=== PATIENT | female | born 1980 | race African-American/Black ===

== ENCOUNTER 2016-12-07 07:25 | Emergency (ER) | payer BC, OTHER ==
[2016-12-07] MEDS ORDERED: IBUPROFEN 600 MG TABLET PO ONE (08:19)
[2016-12-07] MEDS ORDERED: PREDNISONE 20 MG TABLET PO ONE (08:19)
--- NOTE | 2016-12-07 08:25 | ER Document Report ---
ED Extremity Problem, Lower - General Chief Complaint: Leg Pain Stated Complaint: LEGS/FEET PAIN Time seen by provider: 08:20 Mode of Arrival: Ambulatory Information source: Patient Notes: 36-year-old female presents to ED for pain to both legs. She states they have a bad ache to him from top of her legs to her feet. She was told by her radio electrician that she probably has lupus. She has not followed up to get the testing. She states today she is just aching very bad. Discussed the fact that she needs to go to a distribution technician with her and get the testing to find out what is actually going on. TRAVEL OUTSIDE OF THE [place] IN LAST 30 DAYS: No - HPI Patient complains to provider of: Pain. No: Injury, Swelling Location: Foot, Knee, Leg, Thigh Occurred: Other - Few months Onset/Duration: Intermittent Quality of pain: Achy, Burning Severity: Moderate Pain Level: 4 Recent injury: No Associated symptoms: Painful ambulation Exacerbated by: Movement, Walking Relieved by: Nothing - Related Data Allergies/Adverse Reactions: No Known Allergies Allergy (Verified 12/07/16 07:29) Past Medical History - General Information source: Patient - Social History Smoking Status: Current Every Day Smoker Cigarette use (# per day): Yes - 2 to 3 black and milds Chew tobacco use (# tins/day): No Smoking Education Provided: Yes - less than 2 minutes Frequency of alcohol use: Social Drug Abuse: None Lives with: Family - She lives with her children Family History: Hypertension, Malignancy Patient has suicidal ideation: No Patient has homicidal ideation: No - Past Medical History Cardiac Medical History: Reports: Hx Hypertension Pulmonary Medical History: Reports: Hx Bronchitis EENT Medical History: Reports: None Neurological Medical History: Reports: None Endocrine Medical History: Reports: None Renal/ Medical History: Reports: None Malignancy Medical History: Reports: None GI Medical History: Reports: None Musculoskeltal Medical History: Reports Hx Arthritis, Reports Hx Musculoskeletal Deformity Skin Medical History: Reports Hx Eczema Traumatic Medical History: Reports: None Infectious Medical History: Reports: None Past Surgical History: Reports: Hx Oral Surgery - Multiple dental surgeries - Immunizations Immunizations up to date: Yes Hx Diphtheria, Pertussis, Tetanus Vaccination: Yes Review of Systems - Review of Systems Constitutional: No symptoms reported EENT: No symptoms reported Cardiovascular: No symptoms reported Respiratory: No symptoms reported Gastrointestinal: No symptoms reported Genitourinary: No symptoms reported Female Genitourinary: No symptoms reported Musculoskeletal: Other - Burning and aching in both legs no injuries no bruises Skin: No symptoms reported Hematologic/Lymphatic: No symptoms reported Neurological/Psychological: No symptoms reported Physical Exam - Vital signs Vitals: Temp Pulse Resp BP Pulse Ox 98.4 F 88 16 147/89 H 100 12/07/16 07:29 12/07/16 07:29 12/07/16 07:29 12/07/16 07:29 12/07/16 07:29 Interpretation: Normal - General General appearance: Appears well, Alert - HEENT Head: Normocephalic, Atraumatic Eyes: Normal Pupils: PERRL - Respiratory Respiratory status: No respiratory distress Chest status: Nontender Breath sounds: Normal Chest palpation: Normal - Cardiovascular Rhythm: Regular Heart sounds: Normal auscultation Murmur: No - Abdominal Inspection: Normal Distension: No distension Bowel sounds: Normal Tenderness: Nontender Organomegaly: No organomegaly - Back Back: Normal, Nontender - Extremities General upper extremity: Normal inspection, Nontender, Normal color, Normal ROM , Normal temperature General lower extremity: Normal inspection, Normal color, Normal ROM, Normal temperature, Normal weight bearing. No: Nontender - Both legs tender to touch no bruises no injuries no change in color patient able to walk just pain and tenderness to both legs, Bee's sign - Neurological Neuro grossly intact: Yes Cognition: Normal Orientation: AAOx4 [place] Coma Scale Eye Opening: Spontaneous Zach Coma Scale Verbal: Oriented Zach Coma Scale Motor: Obeys Commands Zach Coma Scale Total: 15 Speech: Normal Motor strength normal: LUE, RUE, LLE, RLE Sensory: Normal - Psychological Associated symptoms: Normal affect, Normal mood - Skin Skin Temperature: Warm Skin Moisture: Dry Skin Color: Normal Course - Re-evaluation Re-evalutation: 12/07/16 08:53 We'll treat patient with prednisone and ibuprofen and discharged home patient instructed to follow-up with distribution technician or primary doctor to get tested for lupus assessment and she is concerned she has. - Vital Signs Vital signs: Temp Pulse Resp BP Pulse Ox 98.1 F 80 16 147/96 H 100 12/07/16 09:01 12/07/16 09:01 12/07/16 09:01 12/07/16 09:01 12/07/16 09:01 Discharge - Discharge Clinical Impression: Leg pain, bilateral Condition: Stable Disposition: HOME, SELF-CARE Instructions: Family Physicians / Practices Additional Instructions: Leg Pain, Nonspecific We did not find an obvious cause for your leg pain. There's no sign of blood clot, infection, or other serious disease. Possible causes of vague leg pain include muscle or joint inflammation, disc disease in the lower back, pressure on the nerves in the back, or reduced blood flow through the arteries of the leg. Rest the leg. Pain can be eased with an antiinflammatory pain medicine such as ibuprofen. If the pain involves a small area, a heating pad might help. Call the doctor or return if the leg becomes swollen, weak, discolored, or increasingly painful, or if you develop any other significant change in your health. Ibuprofen Ibuprofen is an excellent, safe drug for pain control. In addition, it has potent antiinflammatory effects which are beneficial, especially in the treatment of injuries, arthritis, or tendonitis. It's best to take ibuprofen with food. Persons with ulcer disease or allergy to aspirin should notify their physician of this before taking ibuprofen. Take the medication exactly as prescribed. Don't take additional doses unless instructed to do so by your doctor. If you develop wheezing, shortness of breath, hives, faintness, stomach pain, vomiting, or dark black stools, return for re-evaluation at once. STEROID MEDICATION: You have been given a medicine of the cortisone/steroid class. This medication is used to control inflammation or allergy. It is usually only given for a short period of time, until the acute process subsides. There are usually no side effects from short-term use of cortisone-like medications. Some persons feel an increased sense of well-being and are not sleepy at bedtime. Long-term use of cortisone medications is best avoided, unless required for a severe condition. If your condition does not remit, or relapses after the course of corticosteroid medication, you should consult your physician. FOLLOW-UP CARE: If you have been referred to a physician for follow-up care, call the physician s office for an appointment as you were instructed or within the next two days. If you experience worsening or a significant change in your symptoms, notify the physician immediately or return to the Emergency Department at any time for re-evaluation. Prescriptions: Prednisone [Sterapred Ds] 1 pkg PO ASDIR PRN 12 Days PRN Reason: Forms: Elevated Blood Pressure, Smoking Cessation Education, Return to Work
[2016-12-07 09:03] VITALS: BP 147/96
== END 2016-12-07 09:04 | disposition home or self-care (01) ==
LOC: ER 07:25
DX: M79.605 Pain in left leg (principal); M79.604 Pain in right leg; F17.210 Nicotine dependence, cigarettes, uncomplicated; I10 Essential (primary) hypertension
CPT/HCPCS: 99283; J7512

== ENCOUNTER 2017-06-26 09:49 | Emergency (ER) | payer BC ==
[2017-06-26] MEDS ORDERED: IBUPROFEN 600 MG TABLET PO ONE (10:09)
[2017-06-26 10:24] LABS: APPEARANCE,URINE SLIGHTLY-CLOUDY; BILIRUBIN,URINE NEGATIVE (NEGATIVE); GLUCOSE, URINE NEGATIVE (NEGATIVE); KETONES,URINE NEGATIVE (NEGATIVE); LEUKOCYTE ESTERASE,URINE NEGATIVE (NEGATIVE); NITRITE,URINE NEGATIVE (NEGATIVE); PROTEIN,URINE NEGATIVE (NEGATIVE); URINE SPECIFIC GRAVITY 1.013
--- NOTE | 2017-06-26 10:34 | ER Document Report ---
ED Fall - General Mode of Arrival: Ambulatory Information source: Patient TRAVEL OUTSIDE OF THE [place] IN LAST 30 DAYS: No - HPI Patient complains to provider of: back and chest pain Occurred: Yesterday Where: Outdoors Context: Tripped - fell down 4-5 steps Location of injury/pain: Back, Chest - General Chief Complaint: Back Pain Stated Complaint: FALL/BACK PAIN Time Seen by Provider: 06/26/17 10:04 Notes: Patient is a 36 year old female presenting to the emergency department complaining of back and chest pain beginning this morning after a fall. Patient states that she was taking the trash out when she fell down 4-5 steps and landed her on chest. Patient states that the right side of her back and right side of her chest is where the pain is located. Patient is currently taking amlodipine for hypertension. Patients PCP is Dr. Franklin. (LILY RICHARD) - Related data Allergies/Adverse Reactions: No Known Allergies Allergy (Verified 06/26/17 09:51) Past Medical History - General Information source: Patient, [facility] Records - Social History Smoking Status: Current Every Day Smoker Cigarette use (# per day): Yes - 2-3 black and milds daily Chew tobacco use (# tins/day): No Smoking Education Provided: No Frequency of alcohol use: Occasional Drug Abuse: Marijuana Occupation: [employer] Family History: Hypertension, Malignancy Patient has suicidal ideation: No Patient has homicidal ideation: No - Past Medical History Cardiac Medical History: Reports: Hx Hypertension Pulmonary Medical History: Reports: Hx Bronchitis Musculoskeltal Medical History: Reports Hx Arthritis, Reports Hx Musculoskeletal Deformity Skin Medical History: Reports Hx Eczema Past Surgical History: Reports: Hx Oral Surgery - Multiple dental surgeries - Immunizations Immunizations up to date: Yes Hx Diphtheria, Pertussis, Tetanus Vaccination: Yes Review of Systems - Review of Systems Constitutional: No symptoms reported EENT: No symptoms reported Cardiovascular: See HPI, Chest pain - chest wall Respiratory: No symptoms reported Gastrointestinal: No symptoms reported Genitourinary: No symptoms reported Female Genitourinary: No symptoms reported Musculoskeletal: See HPI, Back pain Skin: No symptoms reported Hematologic/Lymphatic: No symptoms reported Neurological/Psychological: No symptoms reported -: Yes All other systems reviewed and negative Physical Exam - Vital signs Interpretation: Normal - General General appearance: Appears well, Alert In distress: None - HEENT Head: Normocephalic, Atraumatic Eyes: Normal Pupils: PERRL Mucous membranes: Moist - Respiratory Respiratory status: No respiratory distress Chest status: Tender - parasternal tenderness with palpation Breath sounds: Normal Chest palpation: Normal - Cardiovascular Rhythm: Regular Heart sounds: Normal auscultation Murmur: No - Abdominal Inspection: Normal Distension: No distension Bowel sounds: Normal Tenderness: Nontender Organomegaly: No organomegaly - Back Back: Tender - right lateral scapular musculature tenderness with palpation - Extremities General upper extremity: Normal inspection, Normal ROM, Normal strength General lower extremity: Normal inspection, Normal ROM, Normal strength Shoulder: Tender - Neurological Neuro grossly intact: Yes Cognition: Normal Orientation: AAOx4 [place] Coma Scale Eye Opening: Spontaneous Zach Coma Scale Verbal: Oriented Zach Coma Scale Motor: Obeys Commands Zach Coma Scale Total: 15 Speech: Normal - Psychological Associated symptoms: Normal affect, Normal mood - Skin Skin Temperature: Warm Skin Moisture: Dry Skin Color: Normal - Vital signs Vitals: Temp Pulse Resp BP Pulse Ox 97.9 F 83 16 157/102 H 100 06/26/17 09:51 06/26/17 09:51 06/26/17 09:51 06/26/17 09:51 06/26/17 09:51 - Vital Signs Vital signs: Temp Pulse Resp BP Pulse Ox 98.7 F 73 18 175/95 H 100 06/26/17 10:54 06/26/17 10:54 06/26/17 10:54 06/26/17 10:54 06/26/17 10:54 - Laboratory Laboratory results interpreted by me: 06/26/17 10:05 Urine Urobilinogen 2.0 H Discharge - Discharge Clinical Impression: Fall Qualifiers: Encounter type: initial encounter Qualified Code(s): W19.XXXA - Unspecified fall, initial encounter Chest wall contusion Qualifiers: Encounter type: initial encounter Laterality: right Qualified Code(s): S20.211A - Contusion of right front wall of thorax, initial encounter Muscle strain of right scapular region Qualifiers: Encounter type: initial encounter Qualified Code(s): S46.911A - Strain of unspecified muscle, fascia and tendon at shoulder and upper arm level, right arm , initial encounter Condition: Stable Disposition: HOME, SELF-CARE Additional Instructions: Muscle Strain You have strained a muscle -- torn the fibers within the muscle. This often occurs with strenuous exertion, or during an injury that suddenly stretches the muscle. The seriousness of a strain varies. Some strains heal within days, others cause problems for months. X-rays cannot show a muscle strain. X-rays are taken only if symptoms suggest that a fracture could be present. The usual treatment of a muscle strain is rest and ice packs. Sometimes, a sling, splint, or crutches may be necessary to rest the muscle. The muscle can be used again once pain subsides. Severe strains require a special exercise and stretching program to prevent permanent stiffness and disability. Your doctor will advise you if this will be necessary. Call the doctor immediately if pain or swelling becomes severe, or if numbness or discoloration develop. TAKE THE PAIN MEDICATION IF NEEDED. REST THE NEXT 1-2 DAYS. FOLLOW UP WITH YOUR DOCTOR IF NOT IMPROVING. Prescriptions: Hydrocodone/Acetaminophen [[place] 5-325 mg Tablet] 1 tab PO Q4 PRN #15 tablet PRN Reason: Forms: Return to Work Referrals: RYAN FRANKLIN MD [Primary Care Provider] - Follow up as needed Scribe Attestation: 06/26/17 10:37 I personally performed the services described in the documentation, reviewed and edited the documentation which was dictated to the scribe in my presence, and it accurately records my words and actions. (ABDIRASHID LOREDO) Scribe Documentation - Scribe Written by Danial:: Danial Ortega, 06/26/2017 1327 acting as scribe for :: Hoa
--- NOTE | 2017-06-26 10:49 | RADIOLOGY REPORT (SQ) ---
EXAM DESCRIPTION: CHEST PA/LAT COMPLETED DATE/TIME: 06/26/2017 10:27 am REASON FOR STUDY: chest pain COMPARISON: 05/07/2015 EXAM PARAMETERS: NUMBER OF VIEWS: two views TECHNIQUE: Digital Frontal and Lateral radiographic views of the chest acquired. RADIATION DOSE: NA LIMITATIONS: none FINDINGS: LUNGS AND PLEURA: No opacities, masses or pneumothorax. No pleural effusion. MEDIASTINUM AND HILAR STRUCTURES: No masses or contour abnormalities. HEART AND VASCULAR STRUCTURES: Heart normal size. No evidence for failure. BONES: No acute findings. HARDWARE: None in the chest. OTHER: No other significant finding. IMPRESSION: NO SIGNIFICANT RADIOGRAPHIC FINDING IN THE CHEST. TECHNICAL DOCUMENTATION: JOB ID: [id number] [employer]- All Rights Reserved
[2017-06-26 11:02] VITALS: BP 175/95
== END 2017-06-26 10:59 | disposition home or self-care (01) ==
LOC: ER 09:49
DX: S20.211A Contusion of right front wall of thorax, initial encounter (principal); S46.911A Strain of unspecified muscle, fascia and tendon at shoulder and upper arm level, right arm, initial encounter; M54.9 Dorsalgia, unspecified; W10.9XXA Fall (on) (from) unspecified stairs and steps, initial encounter; Y92.008 Other place in unspecified non-institutional (private) residence as the place of occurrence of the external cause; F17.290 Nicotine dependence, other tobacco product, uncomplicated; I10 Essential (primary) hypertension
CPT/HCPCS: 71020; 81001; 81025; 99284

== ENCOUNTER 2017-07-30 04:47 | Emergency (ER) | payer BC ==
[2017-07-30] MEDS ORDERED: METOCLOPRAMIDE HCL INJ/PF 10 MG/2 ML SDV IV ONE (05:23)
[2017-07-30] MEDS ORDERED: DIPHENHYDRAMINE HCL 50 MG/ML VIAL IV ONE (05:24)
[2017-07-30] MEDS ORDERED: NORMAL SALINE 1000 ML 1,000 ML IV ONE (05:24)
--- NOTE | 2017-07-30 05:26 | ER Document Report ---
ED Headache - General Chief Complaint: Headache Stated Complaint: HEAD ACHE Time Seen by Provider: 07/30/17 05:16 Notes: Patient is a 36-year-old female that comes emergency department for chief complaint of headache. She states headache is right-sided, sharp, making her nauseated and light sensitive. She denies vomiting, visual changes, focal numbness or weakness. She denies neck pain, fever, head injury. She denies history of the same. She states she started getting headaches on Monday, worsened tonight. She states she is nervous because she is a family history of a relative having a brain hemorrhage spontaneously and she wants to be checked for this. She states that she is doing medicated with amlodipine 5 mg daily but her urgent care told her now she needs to go to internal medicine to have ongoing treatment for this. She has not managed to get this point yet. She denies any other medical history. TRAVEL OUTSIDE OF THE [place] IN LAST 30 DAYS: No - Related Data Allergies/Adverse Reactions: No Known Allergies Allergy (Verified 07/30/17 04:49) Past Medical History - General Information source: Patient - Social History Smoking Status: Never Smoker Frequency of alcohol use: None Drug Abuse: None Lives with: Family Family History: Hypertension, Malignancy Patient has suicidal ideation: No Patient has homicidal ideation: No - Past Medical History Cardiac Medical History: Reports: Hx Hypertension Pulmonary Medical History: Reports: Hx Bronchitis Renal/ Medical History: Denies: Hx Peritoneal Dialysis Musculoskeltal Medical History: Reports Hx Arthritis, Reports Hx Musculoskeletal Deformity Skin Medical History: Reports Hx Eczema Past Surgical History: Reports: Hx Oral Surgery - Multiple dental surgeries - Immunizations Immunizations up to date: Yes Hx Diphtheria, Pertussis, Tetanus Vaccination: Yes Review of Systems - Review of Systems Constitutional: No symptoms reported EENT: No symptoms reported Cardiovascular: No symptoms reported Respiratory: No symptoms reported Gastrointestinal: No symptoms reported Genitourinary: No symptoms reported Female Genitourinary: No symptoms reported Musculoskeletal: No symptoms reported Skin: No symptoms reported Hematologic/Lymphatic: No symptoms reported Neurological/Psychological: See HPI Physical Exam - Vital signs Vitals: Temp Pulse Resp BP Pulse Ox 98.4 F 81 16 149/100 H 99 07/30/17 04:56 07/30/17 04:56 07/30/17 04:56 07/30/17 04:56 07/30/17 04:56 Interpretation: Normal - General General appearance: Appears well, Alert In distress: None - Patient appears minimally uncomfortable, squinting her eyes , does not appear to be in distress - HEENT Head: Normocephalic, Atraumatic Eyes: Normal Extraocular movements intact: Yes Eyelashes: Normal Pupils: PERRL - Mild photophobia Nasal: Normal Mouth/Lips: Normal Mucous membranes: Normal Pharynx: Normal Neck: Normal - Respiratory Respiratory status: No respiratory distress Chest status: Nontender Breath sounds: Normal. No: Decreased air movement Chest palpation: Normal - Cardiovascular Rhythm: Regular. No: Tachycardia Heart sounds: Normal auscultation, S1 appreciated, S2 appreciated Murmur: No - Abdominal Inspection: Normal Distension: No distension Bowel sounds: Normal Tenderness: Nontender. No: Tender, Guarding Organomegaly: No organomegaly - Back Back: Normal, Nontender. No: Tender - Extremities General upper extremity: Normal inspection, Nontender, Normal strength, Normal temperature General lower extremity: Normal inspection, Nontender, Normal strength, Normal temperature - Neurological Neuro grossly intact: Yes Cognition: Normal Orientation: AAOx4 [place] Coma Scale Eye Opening: Spontaneous [place] Coma Scale Verbal: Oriented Zach Coma Scale Motor: Obeys Commands [place] Coma Scale Total: 15 Speech: Normal Motor strength normal: LUE, RUE, LLE, RLE Sensory: Normal - Psychological Associated symptoms: Normal affect, Normal mood - Skin Skin Temperature: Warm Skin Moisture: Dry Skin Color: Normal Course - Re-evaluation Re-evalutation: Patient is persistently worried about her headache and her family history, eventually agreed to perform CT of the head, although headache is 3 days old and not severe, no injury, blood pressure not significantly elevated. However she has not had headaches like this before. CT is normal. After medications patient reexamined, headache is completely resolved. Very low suspicion of intracranial hemorrhage, subarachnoid hemorrhage, meningitis. Consistent with migraine. Discussed results, recommendations with patient in detail, patient will be referred to primary care, restarted on her amlodipine, and I discussed return precautions in detail with patient. Patient states satisfaction and agreement. - Vital Signs Vital signs: Temp Pulse Resp BP Pulse Ox 98.3 F 72 18 157/82 H 99 07/30/17 07:32 07/30/17 07:32 07/30/17 07:32 07/30/17 07:32 07/30/17 07:32 Discharge - Discharge Clinical Impression: Headache Qualifiers: Headache type: unspecified Headache chronicity pattern: acute headache Intractability: not intractable Qualified Code(s): R51 - Headache Hypertension Qualifiers: Hypertension type: unspecified Qualified Code(s): I10 - Essential (primary) hypertension Disposition: HOME, SELF-CARE Additional Instructions: Your symptoms and response to treatment are consistent with a migraine. Your CAT scan of the head is normal. Your neurological exam is normal. Resume your normal blood pressure medication as prescribed. Follow-up with primary care for additional management of both blood pressure and migraine headaches. Return to the emergency department for any concerning or worsening symptoms including return or severe headache, vomiting, or any other concerning symptoms. Prescriptions: Amlodipine Besylate 5 mg PO DAILY #30 tab Forms: Return to Work Referrals: TRISTON GARCES MD [ACTIVE STAFF] - Follow up as needed ALIREZA MCMANUS MD [ACTIVE STAFF] - Follow up as needed
--- NOTE | 2017-07-30 06:31 | RADIOLOGY REPORT (SQ) ---
EXAM DESCRIPTION: CT HEAD WITHOUT COMPLETED DATE/TIME: 07/30/2017 6:23 am REASON FOR STUDY: sharp right sided headache, nausea, no hx of H/As COMPARISON: None. TECHNIQUE: Axial images acquired through the brain without intravenous contrast. Images reviewed wi th bone, brain and subdural windows. Images stored on PACS. All CT scanners at this facility use dose modulation, iterative reconstruction, and/or weight based d osing when appropriate to reduce radiation dose to as low as reasonably achievable (ALARA). [facility]: Dose Right [facility]: CareDose [facility]: Dose Right [facility]: Teradose 4D [facility]: [employer] Media RADIATION DOSE: mGy. LIMITATIONS: None. FINDINGS: VENTRICLES: Normal size and contour. CEREBRUM: No masses. No hemorrhage. No midline shift. No evidence for acute infarction. Normal gra y/white matter differentiation. No areas of low density in the white matter. CEREBELLUM: No masses. No hemorrhage. No alteration of density. No evidence for acute infarction. EXTRAAXIAL SPACES: No fluid collections. No masses. ORBITS AND GLOBE: No intra- or extraconal masses. Normal contour of globe without masses. CALVARIUM: No fracture. PARANASAL SINUSES: No fluid or mucosal thickening. SOFT TISSUES: No mass or hematoma. OTHER: No other significant finding. IMPRESSION: NORMAL BRAIN CT WITHOUT CONTRAST. EVIDENCE OF ACUTE STROKE: NO. COMMENT: Quality ID # [id number]: Final reports with documentation of one or more dose reduction techniques (e.g., Automated exposure control, adjustment of the mA and/or kV according to patient size, use of iterative reconstruction technique) TECHNICAL DOCUMENTATION: JOB ID: [id number] [employer]- All Rights Reserved
[2017-07-30] MEDS ORDERED: KETOROLAC TROMETHAMINE INJ/PF 30 MG/1 ML SDV IV ONE (06:38)
[2017-07-30 07:33] VITALS: BP 157/82
== END 2017-07-30 07:33 | disposition home or self-care (01) ==
LOC: ER 04:47
DX: R51 Headache (principal); I10 Essential (primary) hypertension; R11.0 Nausea; Z79.899 Other long term (current) drug therapy
CPT/HCPCS: 99284; 96361; 96374; 96375; 70450; J1200; J1885; J2765; J7030

== ENCOUNTER 2018-05-21 13:18 | Emergency (ER) | payer BC ==
--- NOTE | 2018-05-21 15:05 | ER Document Report ---
ED Skin Rash/Insect Bite/Abscs - General Mode of Arrival: Ambulatory Information source: Patient TRAVEL OUTSIDE OF THE [place] IN LAST 30 DAYS: No - General Chief Complaint: Insect Bite Stated Complaint: FACIAL SWELLING Time Seen by Provider: 05/21/18 14:49 Notes: Patient is a 37-year-old female presenting to the emergency department due to an insect bite to the right side of face with subsequent swelling. Patient states she was on a smoking deck outside of her job around 1030am when she felt something bite the right side of her face. Around approximately 1300 the patient states her boss noticed her face swelling and she proceeded to take a 200 mg Motrin. She said the insect looked like a mosquito although she has never had a reaction like this before. Upon arrival to the emergency department the patient states the swelling has gone down significantly. (MARIA SANTACRUZ) - Related Data Allergies/Adverse Reactions: No Known Allergies Allergy (Verified 05/21/18 13:19) Past Medical History - General Information source: Patient - Social History Smoking Status: Current Every Day Smoker Chew tobacco use (# tins/day): No Drug Abuse: None Family History: Hypertension, Malignancy Patient has suicidal ideation: No Patient has homicidal ideation: No - Past Medical History Cardiac Medical History: Reports: Hx Hypertension Pulmonary Medical History: Reports: Hx Bronchitis Musculoskeletal Medical History: Reports Hx Arthritis, Reports Hx Musculoskeletal Deformity Skin Medical History: Reports Hx Eczema Past Surgical History: Reports: Hx Oral Surgery - Multiple dental surgeries - Immunizations Immunizations up to date: Yes Hx Diphtheria, Pertussis, Tetanus Vaccination: Yes Review of Systems - Review of Systems Constitutional: No symptoms reported EENT: No symptoms reported Cardiovascular: No symptoms reported Respiratory: No symptoms reported Gastrointestinal: No symptoms reported Genitourinary: No symptoms reported Female Genitourinary: No symptoms reported Musculoskeletal: See HPI Skin: See HPI Hematologic/Lymphatic: No symptoms reported Neurological/Psychological: No symptoms reported -: Yes All other systems reviewed and negative Physical Exam - Vital signs Vitals: Temp Pulse Resp BP Pulse Ox 98.3 F 72 18 165/96 H 100 05/21/18 13:21 05/21/18 13:21 05/21/18 13:21 05/21/18 13:21 05/21/18 13:21 - Notes Notes: GENERAL: Alert, interacts well. No acute distress. HEAD: Normocephalic, atraumatic. No signs of a insect bite, no facial swelling. No tenderness to palpation. EYES: Pupils equal, round, and reactive to light. Extraocular movements intact. ENT: Oral mucosa moist, tongue midline. NECK: Full range of motion. Supple. Trachea midline. No lympadenopathy. LUNGS: No respiratory distress. EXTREMITIES: Moves all 4 extremities spontaneously. NEUROLOGICAL: Alert and oriented x3. Normal speech. PSYCH: Normal affect, normal mood. SKIN: Warm, dry, normal turgor. (MARIA SANTACRUZ) Course - Re-evaluation Re-evalutation: 05/21/18 15:11 Apparent symptoms consistent with acute allergic reaction is resolved. Benign exam no evidence of anaphylaxis symptoms only localized inflammatory response that is resolved in ED. (JAKE PACE) - Vital Signs Vital signs: Temp Pulse Resp BP Pulse Ox 98.6 F 69 18 145/80 H 98 05/21/18 15:22 05/21/18 15:22 05/21/18 13:21 05/21/18 15:22 05/21/18 15:22 Discharge - Discharge Clinical Impression: Acute allergic reaction Qualifiers: Encounter type: initial encounter Qualified Code(s): T78.40XA - Allergy, unspecified, initial encounter Disposition: HOME, SELF-CARE Instructions: Acute Allergic Reaction ([facility]) Additional Instructions: Please take Motrin if needed for symptoms. Forms: Return to Work Referrals: RYAN GOLDSTEIN MD [Primary Care Provider] - Follow up as needed Scribe Attestation: 05/22/18 14:31 I personally performed the services described in the documentation, reviewed and edited the documentation which was dictated to the scribe in my presence, and it accurately records my words and actions. (JAKE PACE) Scribe Documentation - Scribe Written by Danial:: Danial Kern, 05/21/2018 15:21 acting as scribe for :: Luke
[2018-05-21 15:24] VITALS: BP 145/80
== END 2018-05-21 15:24 | disposition home or self-care (01) ==
LOC: ER 13:18
DX: T78.40XA Allergy, unspecified, initial encounter (principal); S00.86XA Insect bite (nonvenomous) of other part of head, initial encounter; W57.XXXA Bitten or stung by nonvenomous insect and other nonvenomous arthropods, initial encounter; I10 Essential (primary) hypertension; F17.200 Nicotine dependence, unspecified, uncomplicated
CPT/HCPCS: 99281

== ENCOUNTER 2018-06-12 08:30 | Emergency (ER) | payer BC ==
[2018-06-12 08:40] VITALS: BP 171/98
[2018-06-12] MEDS ORDERED: RINGERS SOLUTION,LACTATED 2,000 ML IV ONE (08:41)
[2018-06-12] MEDS ORDERED: ONDANSETRON 4 MG TAB.RAPDIS PO ONE (08:59)
--- NOTE | 2018-06-12 08:59 | ER Document Report ---
ED GI/ - General Chief Complaint: Nausea/Vomiting/Diarrhea Stated Complaint: ABDOMINAL PAIN/VOMITING/DIARRHEA Time Seen by Provider: 06/12/18 08:40 Mode of Arrival: Ambulatory Information source: Patient Notes: 37-year-old female with nausea vomiting and diarrhea after eating fish and chips in [place] Sunday. 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 She got Pepto-Bismol last night. She did have one diarrhea episode over 400 with very minimal nausea this morning. She does not want to go back to work and infect anybody or the infant area she works. TRAVEL OUTSIDE OF THE [place] IN LAST 30 DAYS: No - Related Data Allergies/Adverse Reactions: No Known Allergies Allergy (Verified 05/21/18 13:19) Past Medical History - General Information source: Patient - Social History Smoking Status: Current Every Day Smoker Frequency of alcohol use: Occasional Drug Abuse: None Occupation: Housekeeping at [employer] Lives with: Family Family History: Hypertension, Malignancy - Past Medical History Cardiac Medical History: Reports: Hx Hypertension Pulmonary Medical History: Reports: Hx Bronchitis Renal/ Medical History: Denies: Hx Peritoneal Dialysis Musculoskeletal Medical History: Reports Hx Arthritis, Reports Hx Musculoskeletal Deformity Skin Medical History: Reports Hx Eczema Past Surgical History: Reports: Hx Oral Surgery - Multiple dental surgeries - Immunizations Immunizations up to date: Yes Hx Diphtheria, Pertussis, Tetanus Vaccination: Yes Review of Systems - Review of Systems Constitutional: No symptoms reported EENT: No symptoms reported Cardiovascular: No symptoms reported Respiratory: No symptoms reported Gastrointestinal: See HPI Genitourinary: No symptoms reported Female Genitourinary: No symptoms reported Musculoskeletal: No symptoms reported Skin: No symptoms reported Hematologic/Lymphatic: No symptoms reported Neurological/Psychological: No symptoms reported Physical Exam - Vital signs Vitals: Temp Pulse Resp BP Pulse Ox 98.3 F 83 16 171/98 H 100 06/12/18 08:33 06/12/18 08:33 06/12/18 08:33 06/12/18 08:33 06/12/18 08:33 Interpretation: Normal - General General appearance: Appears well, Alert - HEENT Head: Normocephalic, Atraumatic Eyes: Normal Conjunctiva: Normal Pupils: PERRL Mucous membranes: Moist Neck: Supple - Respiratory Respiratory status: No respiratory distress Chest status: Nontender Breath sounds: Normal Chest palpation: Normal - Cardiovascular Rhythm: Regular Heart sounds: Normal auscultation Murmur: No - Abdominal Inspection: Normal Distension: No distension Bowel sounds: Normal Tenderness: Nontender. No: Tender Organomegaly: No organomegaly - Back Back: Normal, Nontender. No: CVA tenderness - Extremities General upper extremity: Normal inspection, Nontender, Normal color, Normal ROM , Normal temperature General lower extremity: Normal inspection, Nontender, Normal color, Normal ROM , Normal temperature, Normal weight bearing. No: Bee's sign - Neurological Neuro grossly intact: Yes Cognition: Normal Orientation: AAOx4 [place] Coma Scale Eye Opening: Spontaneous [place] Coma Scale Verbal: Oriented Zach Coma Scale Motor: Obeys Commands Zach Coma Scale Total: 15 Speech: Normal Motor strength normal: LUE, RUE, LLE, RLE Sensory: Normal - Psychological Associated symptoms: Normal affect, Normal mood - Skin Skin Temperature: Warm Skin Moisture: Dry Skin Color: Normal Course - Vital Signs Vital signs: Temp Pulse Resp BP Pulse Ox 98.3 F 83 16 171/98 H 100 06/12/18 08:33 06/12/18 08:33 06/12/18 08:33 06/12/18 08:33 06/12/18 08:33 Discharge - Discharge Clinical Impression: Diarrhea Qualifiers: Diarrhea type: unspecified type Qualified Code(s): R19.7 - Diarrhea, unspecified Condition: Good Disposition: HOME, SELF-CARE Instructions: Diarrhea, Nonspecific ([facility]) Additional Instructions: Drink plenty of fluids today with bland diet Zofran for nausea No work for 2 days Return to the emergency room if you have vomiting diarrhea abdominal pain or fever or if symptoms worsen Prescriptions: Ondansetron [Zofran Odt] 4 mg PO Q6HP PRN #10 tab.rapdis PRN Reason: Forms: Return to Work Referrals: RYAN GOLDSTEIN MD [COMMUNITY BASED STAFF] - Follow up as needed
== END 2018-06-12 09:28 | disposition home or self-care (01) ==
LOC: ER 08:30
DX: R19.7 Diarrhea, unspecified (principal); R11.2 Nausea with vomiting, unspecified; R10.9 Unspecified abdominal pain; F17.200 Nicotine dependence, unspecified, uncomplicated
CPT/HCPCS: 99283; S0119

== ENCOUNTER 2019-05-31 09:16 | Emergency (ER) | payer BC ==
[2019-05-31 09:35] VITALS: BP 159/106
--- NOTE | 2019-05-31 09:43 | ER Document Report ---
HPI - HPI Time Seen by Provider: 05/31/19 09:37 Notes: Patient is a 38-year-old female with a history of hypertension who presents complaining of a stye to her right lower eyelid that is been present for 3 days. Patient states that her eye was more swollen over the past couple days, and the stye has been improving, but is still lingering. Denies drug allergies. She has no light sensitivity or foreign body sensation to the eye. She does not wear contact lenses. She has not noticed any other discharge. No recent illness. She is able to eat and drink without difficulty. She is urinating normally. Denies any headache, fever, URI, sore throat, chest pain, palpitations, syncope, cough, shortness of breath, wheeze, dyspnea, abdominal pain, nausea/vomiting/diarrhea, urinary retention, dysuria, hematuria, or rash. Pt did not take her BP med today. - ROS Systems Reviewed and Negative: Yes All other systems reviewed and negative - REPRODUCTIVE Reproductive: DENIES: : Past Medical History - Social History Smoking Status: Unknown if Ever Smoked Family History: Hypertension, Malignancy - Past Medical History Cardiac Medical History: Reports: Hx Hypertension Pulmonary Medical History: Reports: Hx Bronchitis Renal/ Medical History: Denies: Hx Peritoneal Dialysis Musculoskeletal Medical History: Reports Hx Arthritis, Reports Hx Musculoskeletal Deformity Skin Medical History: Reports Hx Eczema Past Surgical History: Reports: Hx Oral Surgery - Multiple dental surgeries - Immunizations Immunizations up to date: Yes Hx Diphtheria, Pertussis, Tetanus Vaccination: Yes Vertical Provider Document - CONSTITUTIONAL Agree With Documented VS: Yes Notes: PHYSICAL EXAMINATION: GENERAL: Well-appearing, well-nourished and in no acute distress. A&Ox4 HEAD: Atraumatic, normocephalic. EYES: Pupils equal round and reactive to light, extraocular movements intact, sclera anicteric, conjunctiva normal w/o discharge or matting. Non-tender to palp of the globe and eye itself. No surrounding erythema or swelling noted. + small stye rt lower eye lid. ENT: Nares patent and without discharge. oropharynx clear without exudates. No tonsilar hypertrophy or erythema. Moist mucous membranes. Uvula midline. No palatine shift. No airway compromise. No drooling or hoarseness. NECK: Normal range of motion, supple without lymphadenopathy. No rigidity/meningismus. LUNGS: Breath sounds clear to auscultation bilaterally and equal. No wheezes rales or rhonchi. HEART: Regular rate and rhythm without murmurs, rubs, gallops. NEUROLOGICAL: Cranial nerves grossly intact. Normal speech, normal gait. PSYCH: Normal mood, normal affect. SKIN: Warm, Dry, normal turgor, no rashes or lesions noted. - INFECTION CONTROL TRAVEL OUTSIDE OF THE [place] IN LAST 30 DAYS: No Course - Re-evaluation Re-evalutation: 05/31/19 09:40 Patient is an afebrile, well-hydrated, 38-year-old female who presents with a small stye to her right lower eyelid without evidence of abscess warranting incision and drainage. Vitals are acceptable without significant tachycardia, tachypnea, or hypoxia. PE is otherwise unremarkable. Patient is nontoxic- appearing and is able to tolerate p.o. without difficulty. No labs or imaging warranted. Low suspicion for any retained corneal or lid foreign body, deep space infection including orbital cellulitis/abscess, acute glaucoma, penetrating globe injury, retinal detachment, meningitis, sepsis, fracture, compartment syndrome. I will send home with a prescription for erythromycin ointment to use as directed. Conservative measures otherwise for symptoms with proper handwashing. Recheck with your PCM in 3-5 days. Consider follow-up with ophthalmology. Return to the ED with any worsening/concerning symptoms otherwise as reviewed in discharge. Patient is in agreement. - Vital Signs Vital signs: Temp Pulse Resp BP Pulse Ox 97.9 F 81 15 159/106 H 100 05/31/19 09:33 05/31/19 09:33 05/31/19 09:33 05/31/19 09:33 05/31/19 09:33 Discharge - Discharge Clinical Impression: Stye Qualifiers: Laterality: right Eyelid: lower Qualified Code(s): H00.012 - Hordeolum externum right lower eyelid Condition: Stable Disposition: HOME, SELF-CARE Instructions: Jesus ([facility]) Additional Instructions: Keep eyes clean Avoid scratching/touching eyes Wash hands regularly Use eye drops as directed Maintain adequate fluid intake tylenol/ibuprofen as needed over the counter cold medication as needed for symptoms F/u: with your PCM in 3-5 days for a recheck Consider consult with Ophthalmology for ongoing/worsening symptoms Return to the ED with any worsening symptoms and/or development of fever, headache, changes in vision, eye pain, worsening eye redness, redness around the eyes, purulent discharge, sore throat, facial swelling, neck pain/stiffness, chest pain, palpitations, syncope, shortness of breath, trouble breathing, abdominal pain, n/v/d, blood in stool/urine, dysuria, or other worsening symptoms that are concerning to you. Prescriptions: Erythromycin Base [Erythromycin Oph 1 gm Oint Ud] 1 applic OP QID #1 tube Forms: Elevated Blood Pressure Referrals: RAFFI HERNANDEZ MD [ACTIVE STAFF] - Follow up as needed
== END 2019-05-31 09:53 | disposition home or self-care (01) ==
LOC: ER 09:16
DX: H00.012 Hordeolum externum right lower eyelid (principal); I10 Essential (primary) hypertension
CPT/HCPCS: 99283

== ENCOUNTER 2019-09-05 08:09 | Emergency (ER) | payer BC ==
--- NOTE | 2019-09-05 12:31 | ER Document Report ---
ED General - General Chief Complaint: Cold Symptoms Stated Complaint: DRAINAGE IN RIGHT EAR,DIZZINESS,COUGH Primary Care Provider: JAKE REYNOSO DO [ASSOCIATE] - Follow up tomorrow (Call today to make an appointment within the week or next week to assess for possible Choleastoma and change in middle ear infection) JUDY CAMPOS MD [HONORARY] - Follow up as needed (can use this for establishing primary care doctor, or can follow up based on [facility] list of covered family medicine or internal medicine doctors. you can use their website or call an agent to get list of drs you can follow up and your plan covers. ) TRAVEL OUTSIDE OF THE [place] IN LAST 30 DAYS: No - HPI Recently seen / treated by doctor: No Notes: 39F says has only h/o htn for which she stopped taking medicine while back, but who presents today amb in priv vehicle to ED she says for 3 wks now of continued cold sx including malaise overall fatigued, dry cough w/o sob. also in last few days R sided ear pain. when she's tried to dlean it out it feels like there's something hard there "like a little bone". also reports some "dizziness" and then further confirms this is very [id number] and has been happening last few days when getting out of bed in am or standing up after sitting for period, and does include some room spinning. overall goes away quickly on its own. denies neck pain or vision change. no loc or near LOC. no ataxia central or peripheral or focal weakness/clumsiness or difficulty w/ speech. Also denies odynophagia, throat swelling, or neck pain. no fevers. She has had some nasal congestion and has been trying otc Mucinex and theraflu w/o improvement. used her inhaler she hasn't needed for long time for asthma in remission and does feel this helped decrease her coughing. 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 no h/o ENT procedures/surgeries. no recent freshwater or pool submersions. - Related Data Allergies/Adverse Reactions: No Known Allergies Allergy (Verified 05/21/18 13:19) Past Medical History - General Information source: Patient - Social History Smoking Status: Unknown if Ever Smoked Lives with: Alone - though recently nephew is living w/ her after he sustained TBI and having functional difficulties. Family History: Reviewed & Not Pertinent, Hypertension, Malignancy Patient has suicidal ideation: No Patient has homicidal ideation: No - Past Medical History Cardiac Medical History: Reports: Hx Hypercholesterolemia, Hx Hypertension - no meds Pulmonary Medical History: Reports: Hx Bronchitis Renal/ Medical History: Denies: Hx Peritoneal Dialysis Musculoskeletal Medical History: Reports Hx Arthritis, Reports Hx Musculoskeletal Deformity Skin Medical History: Reports Hx Eczema Past Surgical History: Reports: Hx Oral Surgery - Multiple dental surgeries - Immunizations Immunizations up to date: Yes Hx Diphtheria, Pertussis, Tetanus Vaccination: Yes Review of Systems - Review of Systems Constitutional: See HPI EENT: Ear pain - Right, Nose congestion, Nose discharge, Sinus pressure, Sinus discharge, Vertigo. denies: Eye pain, Eye discharge, Blurred vision, Tearing, Double vision, Ear discharge, Nose pain, Throat pain, Difficulty swallowing, Throat swelling, Mouth pain, Mouth swelling, Dental problem Cardiovascular: No symptoms reported, Lightheaded. denies: Chest pain, Palpitations, Orthopnea, Dyspnea, Syncope, Edema, Paroxysmal Nocturnal Dysp Respiratory: No symptoms reported, Cough. denies: Hurts to breathe, Hemoptysis, Short of breath, Wheezing Gastrointestinal: No symptoms reported Genitourinary: No symptoms reported Female Genitourinary: No symptoms reported Musculoskeletal: No symptoms reported Skin: No symptoms reported Hematologic/Lymphatic: No symptoms reported Neurological/Psychological: No symptoms reported Physical Exam - Vital signs Vitals: Temp Pulse Resp BP Pulse Ox 98.4 F 90 18 154/95 H 100 09/05/19 08:16 09/05/19 08:16 09/05/19 08:16 09/05/19 08:16 09/05/19 08:16 Interpretation: Normal - Notes Notes: Ary [place] manuever did not produce nystagmus but + few seconds of vertigo reported on R side. - General General appearance: Appears well - nontoxic, Alert In distress: None - HEENT Head: Normocephalic - no resting nystagmus, Atraumatic Eyes: Normal. No: Pale conjunctiva, Scleral icterus Conjunctiva: No: Injected, Purulent discharge Extraocular movements intact: Yes Pupils: PERRL External canal: Cerumen impaction - L ext canal wnl. R ext canal ++cerumen mostly medial which able to remove gently w/ curette. this revealed hardened fixed growth medial aspect of canal just distal to seems to be intact TM. surrounding friable canal., Erythema. No: Blood in canal, Foreign body Tympanic membrane: Normal - b/l TM intact but cannot fully visualize more medial aspect of R 2/2 what appears to be choleostoma just external to TM Hearing loss: No: Left, Right Mouth/Lips: Normal Mucous membranes: Moist Pharynx: Normal Neck: Normal - Respiratory Respiratory status: No respiratory distress Chest status: Nontender Breath sounds: Other - slightest end exp wheeze but adequate ventilation biphasic all bales nonfocal exam.. No: Decreased air movement Chest palpation: Normal - Cardiovascular Rhythm: Regular Heart sounds: Normal auscultation Murmur: No - Abdominal Inspection: Normal Distension: No distension Bowel sounds: Normal Tenderness: Nontender Organomegaly: No organomegaly - Back Back: Normal, Nontender - Extremities General upper extremity: Normal inspection, Nontender, Normal color, Normal ROM, Normal temperature General lower extremity: Normal inspection, Nontender, Normal color, Normal ROM, Normal temperature, Normal weight bearing. No: Bee's sign - Neurological Neuro grossly intact: Yes Cognition: Normal Orientation: AAOx4 Zach Coma Scale Eye Opening: Spontaneous Zach Coma Scale Verbal: Oriented [place] Coma Scale Motor: Obeys Commands [place] Coma Scale Total: 15 Speech: Normal Motor strength normal: LUE, RUE, LLE, RLE Sensory: Normal - Psychological Associated symptoms: Normal affect, Normal mood - Skin Skin Temperature: Warm Skin Moisture: Dry Skin Color: Normal, Hypopigmentation - Over the face area chronic Course - Re-evaluation Re-evalutation: orthostatic negative. did have transient vertigo on R karina hallpike w/o any other neuro deficits. Rxed cipro otic drops and discussed her f/u w/ her pcp but also an ENT w/in next few days for what appears to be choleostoma and otitis externa on R. also gave limited Rx of meclizine to use if her vertigo were to last more than transiently or was bothering her but i expect that to clear up w/ resolution of her ear prob but this can be followed and re-addressed when she follows w/ ent. we also discussed it being imperative she f/u for bp assessments w/ her pcp ryan since uncontrolled causes strokes, heart attacks and other damage to eyes and kidneys. she agrees. cont to have no sx of end organ ischemia. - Vital Signs Vital signs: Temp Pulse Resp BP Pulse Ox 98.2 F 86 18 153/98 H 100 09/05/19 14:27 09/05/19 14:27 09/05/19 14:27 09/05/19 14:27 09/05/19 14:27 Discharge - Discharge Clinical Impression: Viral illness Cholesteatoma Qualifiers: Laterality: right Qualified Code(s): H71.91 - Unspecified cholesteatoma, right ear Otitis media Qualifiers: Otitis media type: unspecified Laterality: right Qualified Code(s): H66.91 - Otitis media, unspecified, right ear Condition: Good Disposition: HOME, SELF-CARE Additional Instructions: You look hydrated right now vital signs are normal but I still think you might be slightly dehydrated based on your story of getting lightheaded upon standing. I will try a breathing treatment here since you have history of inhaler prescription and see if this helps the cough. Otherwise we will give you some medications for symptom control and then it is gone to be important to make sure you are resting I will write a note for work for today and tomorrow if you will rest and sleep and eat good and hydrate Prescriptions: Ciprofloxacin HCl/Dexameth [Ciprodex Otic Suspension] 7.5 ml OT BID 7 Days #1 pkg Forms: Return to Work Referrals: JAKE REYNOSO DO [ASSOCIATE] - Follow up tomorrow (Call today to make an appointment within the week or next week to assess for possible Choleastoma and change in middle ear infection) JUDY CAMPOS MD [HONORARY] - Follow up as needed (can use this for establishing primary care doctor, or can follow up based on [facility] list of covered family medicine or internal medicine doctors. you can use their website or call an agent to get list of drs you can follow up and your plan covers. )
[2019-09-05] MEDS ORDERED: IPRATROPIUM/ALBUTEROL 0.5-2.5 MG/3 ML AMPUL NEB ONE (12:32)
[2019-09-05 14:28] VITALS: BP 153/98
== END 2019-09-05 14:29 | disposition home or self-care (01) ==
LOC: ER 08:09
DX: B34.9 Viral infection, unspecified (principal); H66.91 Otitis media, unspecified, right ear; H71.91 Unspecified cholesteatoma, right ear; R53.81 Other malaise; R05 Cough; R09.81 Nasal congestion; E78.00 Pure hypercholesterolemia, unspecified; I10 Essential (primary) hypertension
CPT/HCPCS: 94640; 99283; J7620

== ENCOUNTER 2020-03-04 12:42 | Emergency (ER) | payer BC ==
--- NOTE | 2020-03-04 13:25 | ER Document Report ---
HPI - HPI Patient complains to provider of: Right ear drainage Time Seen by Provider: 03/04/20 13:14 Onset: Yesterday Onset/Duration: Gradual Quality of pain: Achy Context: Patient reports using a pin in her ear 5 days ago. Patient states yesterday she started to have drainage from the ear. Patient complains of tenderness behind the ear as well. Patient denies any fever. Associated Symptoms: Earache. denies: Fever Exacerbated by: Denies Relieved by: Denies Similar symptoms previously: Yes Recently seen / treated by doctor: No - ROS ROS below otherwise negative: Yes Systems Reviewed and Negative: Yes All other systems reviewed and negative - CONSTITUTIONAL Constitutional: DENIES: Fever - EENT EENT: REPORTS: Ear Pain - GASTROINTESTINAL Gastrointestinal: DENIES: Nausea - REPRODUCTIVE Reproductive: DENIES: : - DERM Skin Color: Normal Skin Problems: None Past Medical History - General Information source: Patient - Social History Smoking Status: Current Every Day Smoker Frequency of alcohol use: Occasional Drug Abuse: None Occupation: Housekeeping Lives with: Family Family History: Reviewed & Not Pertinent, Hypertension, Malignancy - Past Medical History Cardiac Medical History: Reports: Hx Hypercholesterolemia, Hx Hypertension - no meds Pulmonary Medical History: Reports: Hx Bronchitis Renal/ Medical History: Denies: Hx Peritoneal Dialysis Musculoskeletal Medical History: Reports Hx Arthritis, Reports Hx Musculoskeletal Deformity Skin Medical History: Reports Hx Eczema Past Surgical History: Reports: Hx Oral Surgery - Multiple dental surgeries - Immunizations Immunizations up to date: Yes Hx Diphtheria, Pertussis, Tetanus Vaccination: Yes Vertical Provider Document - CONSTITUTIONAL Agree With Documented VS: No - Heart rate 78 - INFECTION CONTROL TRAVEL OUTSIDE OF THE [place] IN LAST 30 DAYS: No - CARDIOVASCULAR Cardiovascular: Regular Rate, Regular Rhythm, No Murmur. negative: Tachycardia Course - Re-evaluation Re-evalutation: 03/04/20 13:30 Patient states she has been off of her blood pressure medicine for some time. Patient states that she had been previously on amlodipine as seem to help without any adverse reaction. - Vital Signs Vital signs: Temp Pulse Resp BP Pulse Ox 98.5 F 119 H 18 159/102 H 100 03/04/20 12:54 03/04/20 12:54 03/04/20 12:54 03/04/20 12:54 03/04/20 12:54 Discharge - Discharge Clinical Impression: Perforated eardrum Qualifiers: Laterality: right Qualified Code(s): H72.91 - Unspecified perforation of tympanic membrane, right ear Hypertension Qualifiers: Hypertension type: unspecified Qualified Code(s): I10 - Essential (primary) hypertension Condition: Stable Disposition: HOME, SELF-CARE Instructions: Use of Ear Drops ([facility]), Perforated Eardrum ([facility]) Additional Instructions: Return immediately for any new or worsening symptoms Followup with your primary care provider, call tomorrow to make a followup appointment Follow-up with an clinical research assistant for further evaluation, call today to make a follow-up appointment Prescriptions: Ciprofloxacin HCl/Dexameth [Ciprodex Otic Suspension 7.5 Ml Drp Bottle] 4 drop RT_EAR BID #1 bottle Amlodipine Besylate [Norvasc 5 mg Tablet] 5 mg PO DAILY #30 tablet Forms: Return to Work Referrals: [facility] [Provider Group] - Follow up in 3-5 days
[2020-03-04 13:28] VITALS: BP 180/104
== END 2020-03-04 13:31 | disposition home or self-care (01) ==
LOC: ER 12:42
DX: H72.91 Unspecified perforation of tympanic membrane, right ear (principal); H92.11 Otorrhea, right ear; F17.200 Nicotine dependence, unspecified, uncomplicated; I10 Essential (primary) hypertension
CPT/HCPCS: 99282